=== PATIENT | male | born 2000 | race African-American/Black ===

== ENCOUNTER 2025-08-20 12:09 | Emergency (ER) | payer MEDICAID ==
[~2025-08-20] VITALS: Ht 175.3 cm; Wt 75.0 kg
[2025-08-20 12:45] VITALS: O2SAT 97
[2025-08-20 16:07] LABS: CLARITY URINE CLEAR (CLEAR); COLOR URINE YELLOW (YELLOW); GLUCOSE URINE NEGATIVE (NEGATIVE); KETONES URINE TRACE (NEGATIVE); LEUKOCYTE ESTERASE URINE NEGATIVE (NEGATIVE); NITRITE URINE NEGATIVE (NEGATIVE); OCCULT BLOOD URINE NEGATIVE (NEGATIVE); PH URINE 5.5 (4.5-8.0); PROTEIN URINE NEGATIVE (NEGATIVE); SPECIFIC GRAVITY URINE 1.026 (1.005-1.030); UROBILINOGEN URINE 0.2 E.U./dL (0.2-1.0)
[2025-08-20] MEDS: CEFTRIAXONE SODIUM 500MG VIAL IM ONE (16:25)
[2025-08-20 16:32] VITALS: BP 128/74; PULSE 51; RESP 16; TEMP 36.8; O2SAT 100
[2025-08-20] MEDS ORDERED: DOXY100T2 MT (17:35)
== END 2025-08-20 17:52 | disposition home or self-care (01) ==
LOC: ER 12:09
DX: Z11.3 Encounter for screening for infections with a predominantly sexual mode of transmission (principal)
CPT/HCPCS: 99283; 81003; 96372; J0696; 87491; 87591